=== PATIENT | female | born 1995 | race Caucasian/White ===

== ENCOUNTER 2018-11-14 14:56 | Emergency (ER) | payer OTHER ==
[~2018-11-14] VITALS: Ht 160 cm; Wt 85.0 kg
[2018-11-14 15:08] VITALS: BP 130/84
== END 2018-11-14 15:59 | disposition home or self-care (01) ==
LOC: ER 14:57
DX: S93.491A Sprain of other ligament of right ankle, initial encounter (principal); X58.XXXA Exposure to other specified factors, initial encounter; Y93.89 Activity, other specified; Y92.89 Other specified places as the place of occurrence of the external cause; Y99.8 Other external cause status
CPT/HCPCS: 29125; 29515; 73610; 99283

== ENCOUNTER 2019-06-06 11:56 | Emergency (ER) | payer OTHER ==
[~2019-06-06] VITALS: Ht 160 cm; Wt 81.8 kg
[2019-06-06] MEDS ORDERED: PRED20TA PO (13:16)
[2019-06-06] MEDS ORDERED: CLIN300C53 PO (13:16)
[2019-06-06] MEDS ORDERED: dexamethasone 4mg tablet PO ONE (13:20)
[2019-06-06 13:27] VITALS: BP 128/75
== END 2019-06-06 13:35 | disposition home or self-care (01) ==
LOC: EEVIPCON 11:56 → ER 11:56
DX: J02.9 Acute pharyngitis, unspecified (principal); R13.10 Dysphagia, unspecified; Z79.2 Long term (current) use of antibiotics; Z79.899 Other long term (current) drug therapy
CPT/HCPCS: 99283

== ENCOUNTER 2022-03-15 11:57 | Emergency (ER) | payer BC, OTHER ==
[~2022-03-15] VITALS: Ht 160 cm; Wt 79.5 kg
[2022-03-15 12:02] VITALS: BP 132/90
== END 2022-03-15 13:00 | disposition home or self-care (01) ==
LOC: ER 11:57
DX: R07.89 Other chest pain (principal)
CPT/HCPCS: 71101; 99283

== ENCOUNTER 2022-09-27 09:08 | Outpatient (CLI) | payer BC ==
[2022-09-27 10:10] LABS: BASOPHILS % (AUTO) 0.3 % (0-1); EOSINOPHILS # (AUTO) 0.1 X10'3 (0-0.9); EOSINOPHILS % (AUTO) 0.9 % (0-6); HEMATOCRIT 37.1 % (35.0-45.0); HEMOGLOBIN 12.4 g/dl (12.0-16.0); LYMPHOCYTES # (AUTO) 1.8 X10'3 (1.1-4.8); LYMPHOCYTES % (AUTO) 17.4 % (21-51); MEAN CORPUSCULAR HEMOGLOBIN 29.2 PG (27.0-31.0); MEAN CORPUSCULAR HGB CONC 33.5 g/dL (33.0-36.5); MEAN CORPUSCULAR VOLUME 87.3 FL (78-98); MEAN PLATELET VOLUME 8.7 FL (7.4-10.4); MONOCYTES # (AUTO) 0.7 X10'3 (0-0.9); MONOCYTES % (AUTO) 6.6 % (2-12); NEUTROPHILS # (AUTO) 7.6 X10'3 (1.8-7.7); NEUTROPHILS % (AUTO) 74.8 % (42-75); PLATELET COUNT 238 X10'3 (140-440); RED BLOOD COUNT 4.25 X10'6 (4.20-5.60); RED CELL DISTRIBUTION WIDTH 13.1 % (11.5-14.5); WHITE BLOOD COUNT 10.2 X10'3 (4.5-11.0)
[2022-09-27 10:50] LABS: HEMOGLOBIN A1C 5.3 % (4.5-6.2)
[2022-09-27 10:56] LABS: HIV ANTIBODY 1&2 RAPID NON-REACTIVE (Neg)
[2022-09-28 12:11] LABS: RUBELLA ANTIBODIES, IGG 2.34 index (Immune >0.99); VARICELLA-ZOSTER VIRUS AB, IGG 320 index (Immune >165)
[2022-09-29 08:53] LABS: HBSAG SCREEN Negative (Negative); HEP B CORE AB, TOT Negative (Negative)
== END 2022-09-27 23:59 | disposition home or self-care (01) ==
LOC: LAB 09:08
PROVIDERS: ATTEND Obstetrics & Gynecology
DX: Z34.81 Encounter for supervision of other normal pregnancy, first trimester (principal)
CPT/HCPCS: 36415; 83036; 84439; 84443; 85025; 86592; 86703; 86704; 86762; 86885; 86900; 86901; 87088; 87340